=== PATIENT | female | born 1990 | race Caucasian/White ===

== ENCOUNTER 2023-03-01 09:19 | Outpatient (CLI) | payer OTHER ==
[2023-03-01 10:31] VITALS: BP 128/73; PULSE 107; RESP 18; TEMP 98.5
--- NOTE | 2023-03-02 13:58 | P.MSEPDOC ---
Presenting Problems - Arrival Data Date of Arrival on Unit: 03/01/23 Time of Arrival on Unit: 09:19 Mode of Transport: Ambulatory - Complaint OB-Reason for Admission/Chief Complaint: Rule Out SROM Comment: Gush fluid at 0640 today, clear Medical History - Information : 1 Para: 0 Term: 0 : 0 Abortions: Spontaneous or Elective: 0 Number of Living Children: 0 - Gestational Age Gestational Age by DIANA (wks/days): 40 Weeks and 5 Days - History Sexually Transmitted Diseases: HSV Comment: on Acyclovir Review of Systems - Review of Systems Constitutional: No problems Breast: No problems ENT: No problems Cardiovascular: No problems Respiratory: No problems Gastrointestinal: No problems Genitourinary: No problems Musculoskeletal: No problems Neurological: No problems Skin: No problems Vital Signs - Temperature Temperature: 98.5 F Temperature Source: Oral - Pulse Right Sitting Brachial Pulse Rate: 107 Pulse Assessment Method: Automatic Cuff - Respirations Respiratory Rate: 18 Oxygen Delivery Method: Room Air O2 Sat by Pulse Oximetry: 97 - Blood Pressure Right Arm Sitting Blood Pressure: 128/73 Blood Pressure Mean: 91 Blood Pressure Source: Automatic Cuff Medical Screen Scoring - Cervical Exam Dilation (cm): 1 Effacement (%): 50 Station: -2 Membranes: Intact - Assessment - Baby A Baseline FHR: 140 Heart Rate - NICHD Category: Category I (Normal) NST: Reactive Physician Notification - Physician Notified Physician Notified Date: 03/01/23 Physician Notified Time: 10:15 Physician: Denise Garduno Order Received: Yes (wa home) Maternal Triage Index - Maternal Triage Index Presenting for scheduled procedure w/no complaint: No - Stat/Priority 1 Stat Priority 1: No - Urgent/Priority 2 Urgent Priority 2: No - Prompt/Priority 3 Prompt Priority 3: No - Non-Urgent/Priority 4 Non-Urgent Priority 4: Yes Criteria Met for Priority 4: amnisure neg x2, cervix 1cm. Pt will keep her 1:00 office appt today Disposition - Disposition OB Disposition: Discharge to home Discharge Date: 03/01/23 Discharge Time: 10:23 I agree with the RN Medical Screening Exam: Yes Case reviewed; plan agreed upon as documented in EMR&OBIX.: Yes Diagnosis: rule out labor
== END 2023-03-01 10:24 | disposition home or self-care (01) ==
LOC: FBPOP 09:19
PROVIDERS: ATTEND Obstetrics & Gynecology
DX: O47.1 False labor at or after 37 completed weeks of gestation (principal); O98.313 Other infections with a predominantly sexual mode of transmission complicating pregnancy, third trimester; A60.09 Herpesviral infection of other urogenital tract; Z3A.40 40 weeks gestation of pregnancy; Z88.1 Allergy status to other antibiotic agents
CPT/HCPCS: 59025; 84112; G0463; 99213

== ENCOUNTER 2023-03-02 06:00 | Inpatient (IN) | payer OTHER ==
[2023-03-02] MEDS ORDERED: TERBUTALINE 1 MG/ML VIAL SQ PRN (06:27)
[2023-03-02] MEDS ORDERED: miSOPROStoL 200 MCG TAB PO PRN (06:27)
[2023-03-02] MEDS ORDERED: CARBOPROST TROMETHAMINE 250 MCG/ML 1 ML AMP IM PRN (06:27)
[2023-03-02] MEDS ORDERED: METHYLERGONOVINE 0.2 MG/ML 1 ML AMP IM PRN (06:27)
[2023-03-02] MEDS ORDERED: TRANEXAMIC 1,000 MG/100ML-NACL 1,000 MG in EMPTY BAG 1 BAG IV PRN (06:27)
[2023-03-02] MEDS ORDERED: LIDOCAINE 0.5% (PF) 5 MG/ML (50 ML SDV) SQ PRN (06:27)
[2023-03-02] MEDS ORDERED: OXYTOCIN 10 UNIT/ML 1 ML VIAL IM PRN (06:27)
[2023-03-02] MEDS ORDERED: OXYTOCIN 30 UNITS/500 ML NS 30 UNIT in SALINE 1 500ML.BAG IV SCH (06:30)
[2023-03-02] MEDS: LACTATED RINGERS 1,000 ML IV SCH ×2 (06:50→12:56)
[2023-03-02 06:52] LABS: Basophils # (A) 0.1 k/uL (0-0.2); Basophils % (A) 1 %; Eosinophils # (A) 0.2 k/uL (0-0.7); Eosinophils % (A) 1 %; HCT 37.4 % (34.0-46.0); HGB 13.2 gm/dL (11.4-16.0); Lymphocytes # (A) 2.1 k/uL (1.0-4.8); Lymphocytes % (A) 15 %; MCH 32.4 pg (25.0-35.0); MCHC 35.2 g/dL (31.0-37.0); Mean Platelet Volume 7.8; Monocytes # (A) 0.6 k/uL (0-1.0); Monocytes % (A) 4 %; Neutrophils # (A) 11.5 k/uL (1.3-7.7); Neutrophils % (A) 79 %; Platelet Count 320 k/uL (150-450); RBC 4.07 m/uL (3.80-5.40); RDW 13.2 % (11.5-15.5); WBC 14.7 k/uL (3.8-10.6)
--- NOTE | 2023-03-02 08:12 | P.HPOB ---
History of Present Illness H&P Date: 03/02/23 Chief Complaint: Dates This is a 32-year-old 1 para 0 woman with an estimated due date of 02/24/2023 based on LMP consistent with first trimester ultrasound. She presents at 40-6/7 weeks' gestation for induction of labor post dates. Her has been entirely unremarkable. She has been on Valtrex HSV suppression since 36 weeks. She denies any prodromal symptoms are notable lesions on admission. Laboratory data: Blood type O+, antibody screen negative, rubella immune, VDRL nonreactive, hepatitis B surface antigen negative, hep C nonreactive, HIV nonreactive, glucose tolerance testing within normal limits, group B strep negative Past medical history HSV Past surgical history negative Family history noncontributory Review of Systems Constitutional: Reports as per HPI Past Medical History Additional Past Medical History / Comment(s): HSV on Valtrex History of Any Multi-Drug Resistant Organisms: None Reported Past Surgical History: No Surgical Hx Reported Past Anesthesia/Blood Transfusion Reactions: No Reported Reaction Past Psychological History: No Psychological Hx Reported Smoking Status: Never smoker Medications and Allergies Home Medications Medication Instructions Recorded Confirmed Type Vit No.179/Iron/Folic 1 each PO 03/02/23 History [ Tablet] valACYclovir HCL [Valtrex] 500 mg PO DAILY 03/02/23 03/02/23 History Allergies Allergy/AdvReac Type Severity Reaction Status Date / Time azithromycin Allergy Rash/Hives Verified 03/02/23 06:25 [From Zithromax Z-Mike] Exam Vital Signs Temp Pulse Resp BP Pulse Ox 03/02/23 06:24 97.1 F L 105 H 18 114/73 97 Intake and Output 03/01/23 03/02/23 03/02/23 22:59 06:59 14:59 Other: Weight 99.798 kg This is a pleasant, comfortable appearing and visibly gravid female. Targeted physical exam is performed. Cervix is 2 cm dilated 70% effaced and vertex in the -3 station. Artificial rupture of membranes is undertaken and clear fluid is noted. heart tones are category 1. She is irregularly padmini. Results Result Diagrams: 03/02/23 06:38 Abnormal Lab Results - Last 24 Hours (Table) 03/02/23 Range/Units 06:38 WBC 14.7 H (3.8-10.6) k/uL Neutrophils # 11.5 H (1.3-7.7) k/uL Assessment and Plan (1) Post-dates Current Visit: Yes Status: Acute Code(s): O48.0 - POST-TERM SNOMED Code(s): 25838935 (2) Genital HSV Current Visit: Yes Status: Acute Code(s): A60.00 - HERPESVIRAL INFECTION OF UROGENITAL SYSTEM, UNSPECIFIED SNOMED Code(s): 11739653 Plan: 2-year-old 1 para 0 woman admitted at 40-6/7 weeks' gestation for postdates induction of labor. Artificial rupture of membranes is been undertaken and Pitocin augmentation initiated per protocol. heart tones are category 1. She is group B strep negative and Rh+. She may have on analgesia upon request in active labor. Anticipate normal spontaneous vaginal delivery.
[2023-03-02] MEDS ORDERED: fentaNYL (PF) 50 MCG/ML 5 ML AMP ONE (12:53)
[2023-03-02] MEDS ORDERED: SODIUM CHLORIDE 0.9% 250 ML BAG ONE (12:53)
[2023-03-02] MEDS ORDERED: ROPIVACAINE 5 MG/ML 30 ML VIAL ONE (12:53)
[2023-03-02] MEDS ORDERED: ROPIVACAINE 225 MG, fentaNYL (PF). 450 MCG in SODIUM CHLORIDE 0.9% 171 ML EPIDURAL ONE (13:45)
[2023-03-02] MEDS ORDERED: PENICILLIN G POTASSIUM 5,000,000 UNIT in DEXTROSE 5% IN WATER 100 ML IVPB ONE ×2 (23:00)
[2023-03-02] MEDS ORDERED: CITRIC ACID-SODIUM CITRATE 15 ML CUP PO ONE (23:23)
[2023-03-02] MEDS ORDERED: KETAMINE HCL IN 0.9 % NACL 50 MG/5 ML SYRINGE ONE (23:51)
[2023-03-02] MEDS ORDERED: ONDANSETRON 4 MG/2 ML VIAL ONE (23:51)
[2023-03-02] MEDS ORDERED: MORPHINE SULFATE (PF) 0.3 MG/0.3 ML SYR ONE (23:51)
[2023-03-02] MEDS ORDERED: KETOROLAC 30 MG/ML 1 ML VIAL ONE (23:51)
[2023-03-02] MEDS ORDERED: PHENYLEPHRINE 10 MG/ML VIAL ONE (23:51)
[2023-03-02] MEDS ORDERED: fentaNYL (PF) 50 MCG/ML 2 ML AMP ONE (23:51)
[2023-03-02] MEDS ORDERED: OXYTOCIN 30 UNITS/500 ML NS BAG IV ONE (23:51)
[2023-03-03] MEDS ORDERED: NALOXONE 0.4 MG/ML 1 ML VIAL IV PRN ×2 (00:45→00:46)
[2023-03-03] MEDS ORDERED: ONDANSETRON 4 MG/2 ML VIAL IVP PRN (00:45)
[2023-03-03] MEDS ORDERED: METOCLOPRAMIDE 5 MG/ML 2 ML VIAL IVP PRN ×2 (00:45→00:46)
[2023-03-03] MEDS ORDERED: ZOLPIDEM 5 MG TAB PO PRN (00:46)
[2023-03-03] MEDS ORDERED: diphenhydrAMINE 50 MG/ML 1 ML VIAL IVP PRN ×2 (00:46)
[2023-03-03] MEDS ORDERED: diphenhydrAMINE 50 MG CAP PO PRN (00:46)
[2023-03-03] MEDS ORDERED: diphenhydrAMINE 25 MG CAP PO PRN (00:46)
--- NOTE | 2023-03-03 00:57 | P.OP ---
Date of Procedure: 03/03/23 Preoperative Diagnosis: Postdates Arrestive descent and dilatation Postoperative Diagnosis: Postdates Arrestive descent and dilatation Occiput transverse Procedure(s) Performed: Primary low transverse section Anesthesia: epidural Surgeon: Denise Garduno Sewer Inspector #1: Chico Ramos Estimated Blood Loss (ml): 800 IV fluids (ml): 1,000 Urine output (ml): 50 Pathology: none sent Condition: stable Disposition: floor Indications for Procedure: This is a 32-year-old 1 para 0 woman who is admitted for induction at 40-6/7 weeks' gestation. She underwent standard Pitocin induction of labor with artificial rupture of membranes. She did progress slowly throughout the day however did eventually reach 9 cm dilated. She had an adequate contraction pattern however remained 9 cm dilated for greater than 2 hours and developed some swelling and significant patent Of the vertex. Asynclitism was suspected. After discussing the situation with the patient and her in detail as well as the care team the decision was made to proceed to primary low transverse section. Risks of the procedure including bleeding, transfusion, infection, damage to bowel, bladder, ureters, and/or other structures were reviewed. We briefly discussed applications for future pregnancies. Consent was obtained. Operative Findings: Male infant in the occiput transverse position with nuchal cord 1. Apgars 8 at 1 minute and 9 at 5 minutes weighing 7 lbs. 13 oz., 3550 g. Intact, three- vessel cord placenta. Normal-appearing bilateral fallopian tubes and ovaries. Description of Procedure: After the patient was counseled and consent was obtained, her epidural was bolused. She was taken the operating room where she was then positioned, prepped and draped in the dorsal supine position with a leftward tilt. Avalos catheter was placed and of note the urine was blood blood tinged with initial placement of the Avalos catheter. After anesthetic was confirmed adequate a low transverse skin incision was made and carried down to the underlying fascia sharply and with the electrocautery. The fascia was incised sharply in the midline and extended bilaterally with the See scissors. The superior and inferior aspects of the fascial incision were elevated and the underlying rectus muscles dissected off sharply. The rest just muscles were in the midline and the peritoneum was tented up and entered sharply. The peritoneal incision was extended inferiorly and superiorly with good visualization of the bladder. The bladder blade was placed. The low uterine segment was noted to be extremely thin. The vesicouterine peritoneum was tented up and entered sharply creating the bladder flap sharply. The low uterine segment was thin and a low uterine incision was made and extended bluntly. The infant's head was delivered out of the pelvis from the occiput transverse position. Nose and mouth were bulb suctioned. Nuchal cord was reduced. The rest the was then delivered onto the field where the nose and mouth were further bulb suctioned and the cord was clamped and cut. was taken to the warmer. An intact, three-vessel cord placenta was manually removed and the uterus was then exteriorized. The uterus was cleared of all clot and debris and the incision was delineated with Herrera's. The patient received Pitocin both intravenously following delivery of the placenta. There is some mild atony noted. The uterine incision was then closed in a running locked fashion with 0 Vicryl suture followed by second imbricating layer of the same. The low uterine segment was quite boggy and 3 additional [id number] sutures were placed along the suture line to obtain hemostasis. The uterus was replaced in the abdomen and the gutters were cleared of all clot and debris. The uterine incision was reinspected and was noted to be hemostatic. The rectus muscles peritoneal edges and fascial edges were inspected and electrocautery was utilized were necessary for hemostasis. The peritoneum was reapproximated in the midline with 0 Vicryl suture. Fascia was then closed in a running locked fashion with 0 Vicryl suture. The subcuticular tissue was irrigated and reapproximated with 3-0 chromic. The skin was then closed in a subcutaneous fashion with 4-0 Vicryl suture. All counts reported to me as correct by the operating room staff. At the end of the procedure the urine in the Avalos catheter was still slightly blood-tinged but was clearing. There was no dahlia blood noted in the catheter. The patient was then transported to the recovery area in good condition.
[2023-03-03] MEDS ORDERED: OXYTOCIN 30 UNITS/500 ML NS 30 UNIT in SALINE 1 500ML.BAG IV SCH (01:00)
[2023-03-03] MEDS ORDERED: HYDROmorphone PCA 10 MG/50 ML BAG IV PRN (01:00)
[2023-03-03] MEDS: LACTATED RINGERS 1,000 ML IV SCH ×5 (01:19→12:36)
[2023-03-03] MEDS ORDERED: PENICILLIN G POTASSIUM 2,500,000 UNIT in DEXTROSE 5% IN WATER 100 ML IVPB SCH ×2 (03:00)
[2023-03-03] MEDS: ACETAMINOPHEN IV (For NPO) 1,000 MG in EMPTY BAG 1 BAG IVPB SCH ×2 (04:15→09:51)
[2023-03-03] MEDS: ACETAMINOPHEN TAB 500 MG TAB PO SCH ×4 (04:16→20:59)
[2023-03-03] MEDS: IBUPROFEN 600 MG TAB PO SCH ×3 (06:35→18:16)
[2023-03-03] MEDS: SENNOSIDES-DOCUSATE SODIUM 1 EACH TAB PO SCH ×2 (09:30→20:06)
--- NOTE | 2023-03-03 16:30 | P.PNOBGPC ---
Subjective - Subjective Principal diagnosis: Post Dates Interval history: Feeling much better today. Pain well-controlled with oral pain medications. 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 She is describing moderate to heavy lochia still at this point. Past large clot up to the bathroom recently. Denies feeling lightheaded or short of breath. Patient reports: Reports appetite normal, Reports voiding normally, Reports pain well controlled, Reports ambulating normally, Denies dizzy ambulation : doing well, nursing well Objective - Vital Signs Latest vital signs: Vital Signs Temp Pulse Resp BP Pulse Ox 03/03/23 12:45 18 03/03/23 12:00 97.5 F L 98 18 94/59 03/03/23 08:00 98.4 F 101 H 18 100/51 97 03/03/23 02:50 98.2 F 109 H 16 116/58 95 03/03/23 02:24 102 H 16 112/55 98 03/03/23 02:20 100 16 112/55 98 03/03/23 02:05 99 16 119/65 97 03/03/23 01:50 96 16 119/65 100 03/03/23 01:35 96 16 119/56 100 03/03/23 01:20 106 H 16 122/58 100 03/03/23 01:05 97.9 F 95 16 125/55 99 03/03/23 00:50 109 H 16 125/55 99 03/03/23 00:45 100 Intake and Output 03/03/23 03/03/23 03/03/23 06:59 14:59 22:59 Output Total 1597 450 Balance -1597 -450 Output: Urine 400 450 Uretheral (Avalos) 150 Estimated Blood Loss 800 Output, Quantitative 397 Blood Loss Other: Voiding Method Indwelling Catheter # Voids 1 - Exam Lungs: bilateral: normal Extremities: Present: edema (2+). Absent: tenderness Abdomen: Present: normal appearance, soft. Absent: distention Incision: Present: normal, dry, intact, dressed Uterus: Present: normal, firm. Absent: tenderness Assessment and Plan (1) Post-dates Current Visit: Yes Status: Acute Code(s): O48.0 - POST-TERM SNOMED Code(s): 39202221 (2) Genital HSV Current Visit: Yes Status: Acute Code(s): A60.00 - HERPESVIRAL INFECTION OF UROGENITAL SYSTEM, UNSPECIFIED SNOMED Code(s): 76051362 (3) S/P section Current Visit: Yes Status: Acute Code(s): Z98.891 - HISTORY OF UTERINE SCAR FROM PREVIOUS SURGERY SNOMED Code(s): 751100703 (4) Failure to progress in first stage of labor Current Visit: Yes Status: Acute Code(s): OEG0694 - SNOMED Code(s): 634701708 Plan: Postop day 1 status post primary low transverse section for arrest of descent and dilatation in the first stage of labor and findings of occiput transverse position. Evidence of delivery reviewed with Ceci and her . Lochia is still moderate at this point but vital signs are stable and she is asymptomatic. Routine care.
[2023-03-04] MEDS: IBUPROFEN 600 MG TAB PO SCH ×3 (00:08→11:57)
[2023-03-04] MEDS: ACETAMINOPHEN TAB 500 MG TAB PO SCH ×3 (04:48→17:06)
[2023-03-04 08:00] LABS: Basophils # (A) 0.1 k/uL (0-0.2); Basophils % (A) 0 %; Eosinophils # (A) 0.2 k/uL (0-0.7); Eosinophils % (A) 1 %; HCT 28.4 % (34.0-46.0); Lymphocytes # (A) 1.9 k/uL (1.0-4.8); Lymphocytes % (A) 13 %; MCH 31.8 pg (25.0-35.0); MCHC 33.8 g/dL (31.0-37.0); Mean Platelet Volume 8.2; Monocytes # (A) 0.6 k/uL (0-1.0); Monocytes % (A) 4 %; Neutrophils # (A) 11.1 k/uL (1.3-7.7); Neutrophils % (A) 80 %; Platelet Count 297 k/uL (150-450); RBC 3.02 m/uL (3.80-5.40); RDW 13.5 % (11.5-15.5); WBC 13.9 k/uL (3.8-10.6)
[2023-03-04 08:10] LABS: HGB 9.6 gm/dL (11.4-16.0)
--- NOTE | 2023-03-04 08:31 | P.DS ---
Providers Date of admission: 03/02/23 06:05 Expected date of discharge: 03/04/23 Attending physician: Denise Garduno Primary care physician: Stated None - Discharge Diagnosis(es) (1) Post-dates Current Visit: Yes Status: Acute (2) Genital HSV Current Visit: Yes Status: Acute (3) S/P section Current Visit: Yes Status: Acute (4) Failure to progress in first stage of labor Current Visit: Yes Status: Acute Hospital Course: This is a 32-year-old 1 now para 1 woman who is admitted at 40-6/7 weeks' gestation for postdates induction of labor. She had an uncomplicated . She is on Valtrex HSV suppression with no prodromal symptoms or lesions noted. Following admission she underwent artificial rupture of membra caroline and Pitocin induction of labor per protocol. At the start of the induction she was 2 cm dilated. She did progress over greater than 12 hours to 9 cm dilated however had arrest of descent and dilatation at 9 cm. Asynclitism was suspected. She had category 1 heart tones throughout her labor and had received an epidural anesthetic. After discussion anterior decision making with specific incident discussion of risks benefits and alternatives, the decision was made to proceed to primary low transverse section. Her epidural was bolused and she was taken to the operating room where she underwent a, located primary low transverse section. Of note the low uterine segment was very thin. Findings at the time of surgery were otherwise significant for a male infant in the vertex occiput transverse position with Apgars of 8 at 1 minute and 9 at 5 minutes weighing 7 lbs. 13 oz. Please see the delivery summary for details. The patient's course was unrem arkable. Initially she had heavy lochia however that did taper progressively over the first postoperative day. She required minimal COAL CHUTE WORKER and transitioned to oral pain medications without difficulty. By postoperative day #1 she was ambulating and voiding without difficulty and her lochia had significantly decreased she was tolerating a general diet and her pain was well-controlled with oral pain medications. Her incision is well-healing and intact. Her preoperative hemoglobin was 13 and her postoperative day 1 hemoglobin was 9.6. She did have some mild tachycardia however was otherwise asymptomatic. She is instructed to continue vitamin with iron upon discharge. She was deemed stable for discharge home on postoperative day #2 with routine instructions for postoperative care and follow-up. Procedures: Right low transverse section Patient Condition at Discharge: Good Plan - Discharge Summary Discharge Rx Participant: No New Discharge Prescriptions: New Sennosides-Docusate Sodium [Senokot-S] 2 each PO BID@0800,2000 tab Ibuprofen [Motrin] 600 mg PO Q6H tab Acetaminophen Tab [Tylenol] 1,000 mg PO Q6H tab Continue Vit No.179/Iron/Folic [ Tablet] 1 each PO Discontinued valACYclovir HCL [Valtrex] 500 mg PO DAILY Discharge Medication List Vit No.179/Iron/Folic [ Tablet] 1 each PO 03/02/23 [History] Acetaminophen Tab [Tylenol] 1,000 mg PO Q6H tab 03/04/23 [Rx] Ibuprofen [Motrin] 600 mg PO Q6H tab 03/04/23 [Rx] Sennosides-Docusate Sodium [Senokot-S] 2 each PO BID@0800,2000 tab 03/04/23 [Rx] Follow up Appointment(s)/Referral(s): Denise Garduno MD [STAFF PHYSICIAN] - 1 Week Activity/Diet/Wound Care/Special Instructions: Follow-up in 2 weeks after surgery in the office. Call the office with any concerning signs or symptoms including fever greater than 101, severe abdominal pain, heavy vaginal bleeding, signs of wound infection, increased swelling or redness of the lower extremities, signs of depression. No driving for 2 weeks after surgery. No heavy lifting or vigorous activity until reevaluated in the office. No intercourse for 6 weeks after delivery. Discharge Disposition: HOME SELF-CARE
[2023-03-04] MEDS: SENNOSIDES-DOCUSATE SODIUM 1 EACH TAB PO SCH (08:34)
[2023-03-04 17:16] VITALS: BP 114/78; PULSE 96; RESP 16; TEMP 97.8
--- NOTE | 2023-03-04 19:32 | P.PN ---
Progress Note - Text 03/04/23 709am 32-year-old female status post . Patient received Duramorph why the epidural for postop pain control. Patient seen and evaluated, she has a VAS of 0 with no complaints of nausea vomiting. She has mild pruritus which should subside
== END 2023-03-04 17:35 | disposition home or self-care (01) | DRG 540 ==
LOC: 4FBP 06:05
PROVIDERS: ADMIT Obstetrics & Gynecology; ATTEND Obstetrics & Gynecology
PROC: 10907ZC Drainage of Amniotic Fluid, Therapeutic from Products of Conception, Via Natural or Artificial Opening (ICD-10-PCS; 2023-03-02)
PROC: 3E033VJ Introduction of Other Hormone into Peripheral Vein, Percutaneous Approach (ICD-10-PCS; 2023-03-02)
PROC: 10D00Z1 Extraction of Products of Conception, Low, Open Approach (ICD-10-PCS; principal; 2023-03-03)
DX: O48.0 Post-term pregnancy (principal); O62.1 Secondary uterine inertia; O69.81X0 Labor and delivery complicated by cord around neck, without compression, not applicable or unspecified; O32.8XX0 Maternal care for other malpresentation of fetus, not applicable or unspecified; O32.2XX0 Maternal care for transverse and oblique lie, not applicable or unspecified; O98.32 Other infections with a predominantly sexual mode of transmission complicating childbirth; A60.09 Herpesviral infection of other urogenital tract; L29.9 Pruritus, unspecified; Z37.0 Single live birth; Z3A.40 40 weeks gestation of pregnancy; Z28.310 Unvaccinated for COVID-19; Z28.21 Immunization not carried out because of patient refusal
CPT/HCPCS: 85025; 86850; 86900; 86901